=== PATIENT | female | born 1935 | race African-American/Black ===

== ENCOUNTER 2019-01-07 10:18 | Inpatient (IN) ==
[2019-01-07] MEDS ORDERED: ACETAMINOPHEN 325 MG/10.15 ML UDCUP PO STA (11:22)
[2019-01-07 12:26] LABS: Hemoglobin 9.4 GM/DL (12.0-16.0); Immature Granulocytes % 0.7 %; Immature Granulocytes Absolute 0.03 #; Lymphocytes # 0.5 10*3/uL (1.4-4.0); Lymphocytes % 11.7 % (21.3-54.2); Mean Corpuscular HGB Conc 30.3 GM/DL (32-36); Mean Corpuscular Volume 84.5 FL (87-102); Mean Platelet Volume 9.9 FL (9.6-12.0); Neutrophils % 72.6 % (38.7-73.9); Platelet Count 185 T/CUMM (130-400); Red Blood Count 3.67 MC/CUMM (3.8-5.5); Red Cell Distribution Width 12.6 % (9.3-17.3); White Blood Count 4.6 T/CUMM (4-12)
[2019-01-07 12:31] LABS: Apearance,Urine CLEAR (Clear); Bilirubin,Urine Negative (Negative); Blood, Urine Negative (Negative); Glucose,Urine (UA) Negative (Negative); Hyaline Casts,Urine 1 /LPF (0-3); Ketones,Urine Negative (Negative); Mucus,Urine Occasional /LPF (Occasional); Nitrite,Urine Negative (Negative); Protein,Urine Negative; RBC,Urine <1 /HPF (0-4); Urine Color Yellow (Yellow); Urine Specific Gravity 1.011 (1.001-1.035); Urine Urobilinogen < 2.0 EU/DL (0.2-1.0); WBC,Urine <1 /HPF (0-6)
[2019-01-07 12:48] LABS: Alanine Aminotransferase 16 U/L (13-56); Albumin 2.6 G/DL (3.4-5.0); Alkaline Phosphatase 142 U/L (45-117); Aspartate Amino Transferase 28 U/L (0-37); Bilirubin,Total < 0.39 MG/DL (0.2-1.0); Blood Urea Nitrogen 18 MG/DL (7-18); Calcium 8.8 MG/DL (8.5-10.1); Glucose 107 MG/DL (74-106); Osmolality,Calculated 239.5 MOS/KG (273-304); Total Protein 8.5 G/DL (6.4-8.3)
[2019-01-07] MEDS ORDERED: ONDANSETRON 4 MG/2 ML VIAL IV PRN (13:35)
[2019-01-07] MEDS ORDERED: DOCUSATE SODIUM 100 MG CAPSULE PO PRN (13:35)
[2019-01-07] MEDS ORDERED: BISACODYL 5 MG TABLET PO PRN (13:35)
[2019-01-07] MEDS ORDERED: ACETAMINOPHEN 325 MG TABLET PO PRN (13:35)
[2019-01-07 13:54] LABS: INR 0.9
[2019-01-07 14:15] LABS: Thyroid Stimulating Hormone 1.64 uIU/ml (0.358-3.74)
[2019-01-07] MEDS: cefTRIAXone 1,000 MG in SYRINGE 1 EACH IV SCH (14:57)
[2019-01-07 16:22] LABS: Apearance,Urine CLEAR (Clear); Bilirubin,Urine Negative (Negative); Blood, Urine Small mg/dL (Negative); Glucose,Urine (UA) Negative (Negative); Hyaline Casts,Urine 1 /LPF (0-3); Ketones,Urine Negative (Negative); Nitrite,Urine Negative (Negative); Protein,Urine Negative; RBC,Urine 3 /HPF (0-4); Squamous Epithelial Cell,Urine Occasional /HPF (0-10); Urine Color Yellow (Yellow); Urine Specific Gravity 1.027 (1.001-1.035); Urine Urobilinogen < 2.0 EU/DL (0.2-1.0); WBC,Urine 2 /HPF (0-6)
[2019-01-07 17:49] LABS: Calcium 8.4 MG/DL (8.5-10.1); Osmolality,Calculated 246.9 MOS/KG (273-304)
[2019-01-07] MEDS: FERROUS SULFATE 325 MG TABLET PO SCH (21:25)
[2019-01-07] MEDS: ENOXAPARIN 40 MG/0.4 ML SYRINGE SUBCUT SCH (21:38)
[2019-01-08 04:34] LABS: Hematocrit 32.5 VOL% (35.7-47.0); Hemoglobin 9.6 GM/DL (12.0-16.0); Immature Granulocytes % 0.5 %; Immature Granulocytes Absolute 0.02 #; Lymphocytes # 0.3 10*3/uL (1.4-4.0); Mean Corpuscular HGB Conc 29.5 GM/DL (32-36); Mean Corpuscular Volume 86.9 FL (87-102); Mean Platelet Volume 10.1 FL (9.6-12.0); Monocytes % 11.8 % (1.7-12.7); Neutrophils % 80.7 % (38.7-73.9); Platelet Count 203 T/CUMM (130-400); Red Blood Count 3.74 MC/CUMM (3.8-5.5); Red Cell Distribution Width 12.7 % (9.3-17.3); White Blood Count 4.3 T/CUMM (4-12)
[2019-01-08 05:06] LABS: Alanine Aminotransferase 15 U/L (13-56); Albumin 2.3 G/DL (3.4-5.0); Alkaline Phosphatase 143 U/L (45-117); Aspartate Amino Transferase 24 U/L (0-37); Bilirubin,Total < 0.39 MG/DL (0.2-1.0); Blood Urea Nitrogen 18 MG/DL (7-18); Calcium 8.7 MG/DL (8.5-10.1); Glucose 117 MG/DL (74-106); Osmolality,Calculated 251.6 MOS/KG (273-304); Total Protein 7.9 G/DL (6.4-8.3)
[2019-01-08] MEDS: PANTOPRAZOLE 40 MG TABLET PO SCH (11:19)
[2019-01-08] MEDS: FERROUS SULFATE 325 MG TABLET PO SCH ×3 (11:19→20:29)
[2019-01-08 14:59] LABS: Albumin 2.5 G/DL (3.4-5.0)
[2019-01-08] MEDS: cefTRIAXone 1,000 MG in SYRINGE 1 EACH IV SCH (15:51)
[2019-01-08] MEDS: ENOXAPARIN 40 MG/0.4 ML SYRINGE SUBCUT SCH (20:30)
[2019-01-09 05:12] LABS: Calcium 8.7 MG/DL (8.5-10.1); Osmolality,Calculated 256.6 MOS/KG (273-304)
[2019-01-09 05:30] LABS: Basophils % 0.2 % (0.0-0.8); Hematocrit 34.9 VOL% (35.7-47.0); Hemoglobin 10.2 GM/DL (12.0-16.0); Immature Granulocytes % 0.8 %; Immature Granulocytes Absolute 0.04 #; Lymphocytes # 0.2 10*3/uL (1.4-4.0); Mean Corpuscular HGB Conc 29.2 GM/DL (32-36); Mean Corpuscular Volume 89.7 FL (87-102); Mean Platelet Volume 10.2 FL (9.6-12.0); Monocytes % 7.7 % (1.7-12.7); Neutrophils % 88.3 % (38.7-73.9); Platelet Count 245 T/CUMM (130-400); Red Blood Count 3.89 MC/CUMM (3.8-5.5); Red Cell Distribution Width 12.9 % (9.3-17.3); White Blood Count 4.9 T/CUMM (4-12)
[2019-01-09 06:36] LABS: Anisocytosis 1+; Hypochromasia 1+; Lymphocytes 6 % (20-55); Segmented Neutrophils 89 % (50-85); Total Cells Counted 100
[2019-01-09 06:37] LABS: Platelet Estimate Adequate
[2019-01-09] MEDS: PANTOPRAZOLE 40 MG TABLET PO SCH ×2 (09:06→09:18)
[2019-01-09] MEDS: FERROUS SULFATE 325 MG TABLET PO SCH ×4 (09:06→21:15)
[2019-01-09] MEDS ORDERED: SODIUM CHLORIDE 0.9% 500 ML IV ONE ×3 (13:00→18:48)
[2019-01-09 13:18] LABS: Calcium 8.7 MG/DL (8.5-10.1); Osmolality,Calculated 256.5 MOS/KG (273-304)
[2019-01-09 15:32] LABS: Hematocrit 36.4 VOL% (35.7-47.0); Hemoglobin 9.8 GM/DL (12.0-16.0); Immature Granulocytes % 1.1 %; Immature Granulocytes Absolute 0.06 #; Lymphocytes # 0.2 10*3/uL (1.4-4.0); Lymphocytes % 3.6 % (21.3-54.2); Mean Corpuscular HGB Conc 26.9 GM/DL (32-36); Mean Corpuscular Volume 94.1 FL (87-102); Mean Platelet Volume 9.7 FL (9.6-12.0); Monocytes % 13.7 % (1.7-12.7); Neutrophils % 81.6 % (38.7-73.9); Platelet Count 193 T/CUMM (130-400); Red Blood Count 3.87 MC/CUMM (3.8-5.5); Red Cell Distribution Width 12.8 % (9.3-17.3); White Blood Count 5.2 T/CUMM (4-12)
[2019-01-09 16:03] LABS: Hypochromasia 1+; Lymphocytes 5 % (20-55); Segmented Neutrophils 88 % (50-85); Total Cells Counted 100
[2019-01-09 16:04] LABS: Platelet Estimate Adequate; Target Cells Few
[2019-01-09] MEDS: cefTRIAXone 1,000 MG in SYRINGE 1 EACH IV SCH (17:51)
[2019-01-09] MEDS: SODIUM CHLORIDE 0.9% 1,000 ML IV SCH (19:30)
[2019-01-09] MEDS: ENOXAPARIN 30 MG/0.3 ML SYRINGE SUBCUT SCH (21:15)
[2019-01-10 08:31] LABS: Calcium 7.9 MG/DL (8.5-10.1); Osmolality,Calculated 267.1 MOS/KG (273-304)
[2019-01-10] MEDS: FERROUS SULFATE 325 MG TABLET PO SCH ×3 (09:01→21:19)
[2019-01-10] MEDS: PANTOPRAZOLE 40 MG TABLET PO SCH (09:01)
[2019-01-10] MEDS: fentaNYL 12 MCG/HR PATCH TRANSDERM SCH (14:30)
[2019-01-10] MEDS: cefTRIAXone 1,000 MG in SYRINGE 1 EACH IV SCH (14:30)
[2019-01-10] MEDS: ENOXAPARIN 30 MG/0.3 ML SYRINGE SUBCUT SCH (21:44)
[2019-01-11] MEDS: FERROUS SULFATE 325 MG TABLET PO SCH ×3 (08:59→20:56)
[2019-01-11] MEDS: PANTOPRAZOLE 40 MG TABLET PO SCH (08:59)
[2019-01-11] MEDS ORDERED: CARBOXYMETHYLCELLULOSE 1% OPH SOLN BOTH EYES PRN (15:05)
[2019-01-11] MEDS: cefTRIAXone 1,000 MG in SYRINGE 1 EACH IV SCH (15:26)
[2019-01-11] MEDS: ENOXAPARIN 30 MG/0.3 ML SYRINGE SUBCUT SCH (20:56)
[2019-01-12 05:28] LABS: Hematocrit 30.9 VOL% (35.7-47.0); Hemoglobin 9.3 GM/DL (12.0-16.0); Immature Granulocytes % 0.6 %; Immature Granulocytes Absolute 0.03 #; Lymphocytes # 0.2 10*3/uL (1.4-4.0); Lymphocytes % 5.1 % (21.3-54.2); Mean Corpuscular HGB Conc 30.1 GM/DL (32-36); Mean Corpuscular Volume 87.3 FL (87-102); Mean Platelet Volume 10.3 FL (9.6-12.0); Monocytes % 9.1 % (1.7-12.7); Neutrophils % 85.2 % (38.7-73.9); Platelet Count 177 T/CUMM (130-400); Red Blood Count 3.54 MC/CUMM (3.8-5.5); Red Cell Distribution Width 12.9 % (9.3-17.3); White Blood Count 4.7 T/CUMM (4-12)
[2019-01-12 05:47] LABS: Calcium 8.1 MG/DL (8.5-10.1); Osmolality,Calculated 270.9 MOS/KG (273-304)
[2019-01-12 05:51] LABS: Burr Cells 1+; Hypochromasia 1+; Ovalocytes 1+; Platelet Estimate Normal; Target Cells Few
[2019-01-12] MEDS: FERROUS SULFATE 325 MG TABLET PO SCH ×3 (09:22→21:33)
[2019-01-12] MEDS: PANTOPRAZOLE 40 MG TABLET PO SCH (09:22)
[2019-01-12] MEDS: cefTRIAXone 1,000 MG in SYRINGE 1 EACH IV SCH (16:39)
[2019-01-12] MEDS: ENOXAPARIN 30 MG/0.3 ML SYRINGE SUBCUT SCH (21:33)
[2019-01-13] MEDS: fentaNYL 12 MCG/HR PATCH TRANSDERM SCH (09:08)
[2019-01-13] MEDS: FERROUS SULFATE 325 MG TABLET PO SCH ×3 (09:17→22:22)
[2019-01-13] MEDS: PANTOPRAZOLE 40 MG TABLET PO SCH (09:18)
[2019-01-13] MEDS: SODIUM CHLORIDE 0.9% 1,000 ML IV SCH (10:40)
[2019-01-13] MEDS ORDERED: MORPHINE 4 MG/1 ML VIAL IV PRN (17:41)
[2019-01-13] MEDS ORDERED: LORazepam 2 MG/1 ML VIAL IV PRN (18:03)
[2019-01-14 12:36] VITALS: BP 91/49
[2019-01-14] MEDS: PANTOPRAZOLE 40 MG TABLET PO SCH (16:17)
[2019-01-14] MEDS: FERROUS SULFATE 325 MG TABLET PO SCH (16:17)
== END 2019-01-14 15:30 | disposition hospice, home (50) | DRG 180 ==
LOC: N.ED 10:18 → N.EDINP 13:35 → SUATTDRO 13:35 → N.EDINP 14:22 → N.2E 14:25
PROVIDERS: ADMIT Internal Medicine; ATTEND Internal Medicine